=== PATIENT | male | born 1995 | race African-American/Black ===

== ENCOUNTER 2017-10-11 13:26 | Emergency (ER) | payer MEDICAID, OTHER ==
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
== END 2017-10-11 14:24 | disposition home or self-care (01) ==
LOC: ER 13:26
DX: S06.0X0A Concussion without loss of consciousness, initial encounter (principal); R42 Dizziness and giddiness; V40.0XXA Car driver injured in collision with pedestrian or animal in nontraffic accident, initial encounter
CPT/HCPCS: 99282